=== PATIENT | female | born 1945 | race African-American/Black ===

== ENCOUNTER 2024-03-28 10:26 | Emergency (ER) | payer MEDICARE, SELFPAY ==
[2024-03-28] VITALS (11 sets, daily range): BP systolic 128–148; BP diastolic 54–67; PULSE 78–85; RESP 14–19; TEMP 36.6; O2SAT 98–100
--- NOTE | ~2024-03-28 | XR_ITS ---
AP view of the pelvis and AP and lateral views of the left hip Clinical history: Pain Findings: No acute fracture or dislocation is seen. Osseous alignment is anatomic. There is mild dege nerative change of both hip joints. Soft tissues are unremarkable. 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 Reviewed, dictated and finalized at location . 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
[2024-03-28] MEDS: ACETAMINOPHEN 325 MG TABLET 650 MG PO (11:44)
--- NOTE | 2024-03-28 12:56 | ED.FALL ---
HPI - Fall General Chief Complaint: Fall Stated Complaint: ground level fall, hip pain Time Seen by Provider: 03/28/24 10:32 History of Present Illness HPI Narrative: Patient is a 79-year-old female who presents ER after fall last night. Fall onto her left hip. 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 She did not strike her head or lose consciousness. She came in for further evaluation. Her wound VAC is not currently connected to the VAC itself. No new drainage or pain to the wound area. Related Data Allergies Allergy/AdvReac Type Severity Reaction Status Date / Time aspartame Allergy Unknown Verified 03/28/24 10:55 egg Allergy Unknown Verified 03/28/24 10:55 Ppcvmmy-OYA-ErR Reductase Allergy Unknown Verified 03/28/24 10:55 Inhibitor Sulfa (Sulfonamide Allergy Unknown Verified 03/28/24 10:55 Antibiotics) Review of Systems Review of Systems: All systems reviewed & are unremarkable except as noted in HPI and below Constitutional: Constitutional: Reports no additional constitutional complaints ENT: Reports system reviewed and no additional complaints, except as documented Cardiovascular: Cardiovascular: Reports no additional cardiovascular complaints Musculoskeletal: Musculoskeletal: Reports no additional musculoskeletal complaints [facility] Past Medical History Medical History (Updated 03/28/24 @ 13:06 by Myron Viramontes MD) Diabetes Hypertension Surgical History Surgical History (Updated 03/28/24 @ 12:57 by Myron Viramontes MD) History of surgery on lower extremity wound debridement Exam Narrative: GENERAL: Well-appearing, morbidly obese, and in no acute distress. HEAD: Normocephalic, atraumatic. EYES: PERRL and EOMI. ENT: Mucous membranes moist. CHEST: Clear to auscultation. No respiratory distress. HEART: Regular rate and rhythm. Normal peripheral pulses. ABDOMEN: Soft, nontender, nondistended. EXTREMITIES: Normal range of motion. No edema. SKIN: Warm, dry, n large wound to left lateral thigh that is clean in appearance without surrounding cellulitis or purulent drainage. NEURO: Alert and oriented x3. PSYCH: Normal mood and affect. Course Course Emergency Course: Wound care of has cleans the chronic wound and redressed it. Patient will be sent back to her rehab center. 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 Discharge Plan Discharge Clinical Impression: Chronic wound Patient Disposition: Home, Self-Care Condition: Stable Instructions: Chronic Wounds (ED) Additional Instructions: Return to the ER if you suffered an injury, have fever 100.4? F, you have chest pain with shortness of breath, or you have additional concerns. Follow-up/Referrals: Best Manriquez MD [Primary Care Provider] - 1 Week
== END 2024-03-28 14:45 ==
PROVIDERS: Emergency Provider Emergency Medicine; PCP Family Medicine
DX: S70.922A Unspecified superficial injury of left thigh, initial encounter (principal); W19.XXXA Unspecified fall, initial encounter; E11.9 Type 2 diabetes mellitus without complications; I10 Essential (primary) hypertension
CPT/HCPCS: 73502; 99283; A9270